=== PATIENT | male | born 1990 ===

== ENCOUNTER 2024-11-22 15:39 | Outpatient (AMB) | payer OTHER, SELFPAY ==
--- NOTE | 2024-11-22 15:02 | ACNOTE_ITS ---
Allergies/Meds Allergies & Medications Allergies No Known Allergies Allergy (Verified 11/22/24 15:41) Medication Reconciliation tirzepatide (weight loss) 2.5 mg/0.5 mL subcutaneous pen injector (Zepbound) 2.5 mg (0.5 mL) subcut QWEEK #2 mL 06/11/24 [Rx Confirmed 11/22/24] tirzepatide (weight loss) 5 mg/0.5 mL subcutaneous pen injector (Zepbound) 5 mg (0.5 mL) subcut QWEEK #2 mL 07/03/24 [Rx Confirmed 11/22/24] tirzepatide (weight loss) 7.5 mg/0.5 mL subcutaneous pen injector 7.5 mg (0.5 mL ) subcut QWEEK #2 mL 12/04/24 [Rx] MA Intake Visit Data Collection New Patient or Established: Established Patient (seen at [facility] within 3 years) Seen by Clinical Staff ONLY (RN/MA): No Pain Present Currently: No Pain scale:: 0 Pain Scale Used: Bueno-Gibbons/Numerical Registered Vascular Technologist (Rvt) Required: No PCP or OBGYN visit in last 3 months: No Hx Now: No Do You Feel Safe at Home: Yes Authorities Contacted: N/A Smoking Status Smoking Status: Never smoker For Televisit only Telemed Video/Phone Visit: Yes Verbal Consent witness name: GENE GLEASON MA Telemed Video/Phone visit w/Clinical Staff: 21-30 min Immunization / Flu Flu Vaccine in the Last 12 Months: No Flu Vaccine Exclusion Criteria: No Exclusion Criteria Past Medical History Past Medical History GASTROINTESTINAL: Positive Gastroesophageal Reflux Disease Family History FAMILY HISTORY: Positive Family Cardiac Disorders (HTN, HLD) Social History SMOKING STATUS: Smoking status: Never smoker Patient Portal Questionaires Social History Tobacco History Smoking Status: Never smoker Domestic Abuse History Do You Feel Safe at Home: Yes Review of Systems Report any current symptoms Only answer those that you have currently: Past Medical History Past Medical History Have you ever been diagnosed with any of the following: Stomache/Intestinal Problems Gastroesophageal Reflux Disease: Yes History of Present Illness HPI Narrative Patient is a 34-year-old male who presents to clinic for yearly physical exam and labs. Patient also endorses weight gain over the past 1 year. He states he has changed his diet and goes for runs 4-5 times a week, including multiple 5K's however has continued to gain weight. Remainder of ROS was negative. BMI noted to be 32.6 in clinic today, was 31.4 last year. 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 He has had a great response when using it, with an approximate 25 lb weight reduction (~12-13% from baseline in May 2024). [place] to zepbound, and has put some of the weight back on. Patient's weight at home is 185, with BMI 29.4. He continues to maintain a healthy lifestyle in terms of diet, and exercising 4-5x per week but has not had a significant weight loss. Additionally labs were reviewed, significant for total cholesterol 234, LDL 167. A1c 4.6, 1+ protein on UA. Review of Systems Review of Systems Systems Reviewed: All systems reviewed, normal except as documented Objective/Exam Narrative Physical exam: tele visit Assessment & Plan Diagnosis / Problem List (1) Obesity (BMI 30.0-34.9): Status: Acute Assessment & Plan: Patient was on zepbound, with initial 25lb weight loss. Has not had his zepbound, and also gained some weight while [place] of country. Continuing lifestyle modifications BMI 29.4 (improved from 32.6) Additional hyperlipidemia noted on labs Plan: Will resume zepbound to augment weight loss, in addition to current dietary/lifestyle modifications (2) Hyperlipemia: Status: Acute Qualifiers: Hyperlipidemia type: pure hypercholesterolemia Qualified Code(s): E78.00 - Pure hypercholesterolemia, unspecified Assessment & Plan: LDL 167, total cholesterol 234 Plan: Will defer starting statin at this time as labs were drawn prior to patient's weight loss Recommend to continue zepbound for weight loss, in addition to current dietary/lifestyle modifications Plan Continue zepbound, lifestyle/dietary modifications Additional Assessment Internal Medicine Attending Note: Case discussed with and agree with note and management plan of Resident Physician as per Resident's Note above. Issues of concern for present visit are as follows: Visit completed via telehealth. Patient previously on Zepbound with good response, approximately loss of 25 pounds. However, patient was out of the country in [facility] for approximately 1 month without access, and has regained some weight. Patient's BMI up to 29.4. Trying to maintain healthy diet and exercising 4-5 times a week. We will resume Zepbound to augment weight loss as patient is borderline obesity. Labs reviewed showing total cholesterol of 234 with an LDL of 167. These labs were drawn prior to weight loss, we will check these again in 3 to 6 months. Bora Mo MD Physician Billing Established Patient Established Patient: E/M Level 2-CPT 62859 Office Procedures [facility] Level of Care Nursing/Assessment Patient Status: Established Patient Nursing Assessment/Reassessment: Medication Reconciliation and Update PMH in EMR Coordination of Care: Complex Care and Chronic Disease 1-5, Consent,records obtained, informed consent, Education Simp Pt/Fam and Staff clarify orders Established Patient Charge Established Patient Point Assignment: 70 Telehealth Telemed Phone/Video with patient at home & Dr,PA,SHEET METAL MECHANIC: Yes
== END 2024-11-22 15:41 | disposition home or self-care (01) ==
LOC: HODAHC 15:39
PROVIDERS: Supervising Provider Student in an Organized Health Care Education/Training Program; Visit Provider Student in an Organized Health Care Education/Training Program
DX: R63.5 Abnormal weight gain (principal); Z68.29 Body mass index [BMI] 29.0-29.9, adult; E78.00 Pure hypercholesterolemia, unspecified
CPT/HCPCS: 99212; G0463